=== PATIENT | male | born 1975 | race African-American/Black ===

== ENCOUNTER 2017-02-12 08:21 | Emergency (ER) | payer MEDICAID ==
[~2017-02-12] VITALS: Ht 180.3 cm; Wt 105.0 kg
[2017-02-12] MEDS ORDERED: SODIUM CHLORIDE 0.9% 1,000 ML IV ONE (08:40)
[2017-02-12 09:25] LABS: BASOPHILS % 1.3 % (0.0-2.0); EOSINOPHILS % 2.4 % (0.0-5.0); HEMATOCRIT. 41.4 % (42.0-52.0); HEMOGLOBIN. 13.9 g/dL (14.0-18.0); LYMPHOCYTES % 26.9 % (20.0-50.0); MEAN CORPUSCULAR HGB CONC 33.5 g/dL (31.0-37.0); MEAN CORPUSCULAR VOLUME 83.5 fL (80.0-94.0); MEAN PLATELET VOLUME 7.9 fl (7.4-10.4); MONOCYTES % 6.2 % (2.0-8.0); NEUTROPHILS % 63.2 % (40.0-76.0); PLATELET 296 x1000/uL (130-400); RED BLOOD CELL COUNT 4.96 mill/uL (4.7-6.1); RED CELL DISTRIBUTION WIDTH 12.8 % (11.6-14.6); WHITE BLOOD COUNT 6.3 x1000/uL (4.5-11.0)
[2017-02-12 09:31] LABS: INR 1.1; PROTHROMBIN TIME 11.2 sec
[2017-02-12 09:40] LABS: ALANINE AMINOTRANSFERASE 30 IU/L (13-61); ALBUMIN 4.1 g/dL (3.4-5.0); ANION GAP 15; CALCIUM 8.7 mg/dL (8.5-10.1); CARBON DIOXIDE 24 mEq/L (21-32); CHLORIDE 105 mEq/L (98-107); CREATINE KINASE MB FRACTION 0.8 ng/mL (0.5-3.6); ETHANOL BLOOD < 10 mg/dL; INDEX HEMOLYSI 1 (1-3); INDEX ICTERIC 1 (1-4); INDEX LIPEMIC 1 (1-3); MAGNESIUM 2.2 mg/dL (1.8-2.4); NT PRO B-TYPE NATRIURETIC PEP 7 pg/mL (5-125); TROPONIN I < 0.02 ng/mL (0.00-0.04); UREA NITROGEN BLOOD 12 mg/dL (7-21); eGFR > 60 mL/min (>60)
[2017-02-12 09:43] LABS: *AMPHETAMINES SCREEN URINE NEGATIVE (NEGATIVE); *BARBITURATES SCREEN URINE NEGATIVE (NEGATIVE); *BENZODIAZEPINES SCREEN URINE NEGATIVE (NEGATIVE); *COCAINE SCREEN URINE NEGATIVE (NEGATIVE); CANNABINOID URINE SCREEN NEGATIVE (NEGATIVE); ECSTASY MDMA SCREEN URINE NEGATIVE (NEGATIVE); METHADONE URINE SCREEN NEGATIVE (NEGATIVE); OPIATES URINE SCREEN NEGATIVE (NEGATIVE); PHENCYCLIDINE URINE SCREEN NEGATIVE (NEGATIVE)
[2017-02-12 11:36] VITALS: BP 117/79
== END 2017-02-12 11:40 | disposition home or self-care (01) ==
LOC: ER 08:21
DX: R55 Syncope and collapse (principal); R42 Dizziness and giddiness; F17.210 Nicotine dependence, cigarettes, uncomplicated
CPT/HCPCS: 36415; 70450; 71010; 71275; 80053; 80305; 82553; 83735; 83880; 84484; 85025; 85610; 85730; 93005; 99285; G0482; J7030; Z7610

== ENCOUNTER 2018-10-02 07:59 | Emergency (ER) | payer MEDICAID ==
[~2018-10-02] VITALS: Ht 180.3 cm; Wt 101.9 kg
[2018-10-02] MEDS ORDERED: SODIUM CHLORIDE 0.9% 1,000 ML IV ONE (08:37)
[2018-10-02] MEDS ORDERED: ALBUTEROL (0.083%) 2.5MG/3ML NEB HHN STA (08:37)
[2018-10-02] MEDS ORDERED: NITROGLYCERIN OINT 1GM/INCH UDPKT TD ONE (08:45)
[2018-10-02] MEDS ORDERED: ASPIRIN 81MG TABLET PO ONE (08:45)
[2018-10-02 09:20] LABS: BASOPHILS % 0.7 % (0.0-2.0); EOSINOPHILS % 1.4 % (0.0-5.0); HEMATOCRIT. 41.9 % (42.0-52.0); HEMOGLOBIN. 13.9 g/dL (14.0-18.0); LYMPHOCYTES % 13.7 % (20.0-50.0); MEAN CORPUSCULAR HEMOGLOBIN 28.6 pg (28.0-32.0); MEAN CORPUSCULAR VOLUME 86.4 fL (80.0-94.0); MONOCYTES % 5.7 % (2.0-8.0); NEUTROPHILS % 78.5 % (40.0-76.0); PLATELET 307 x1000/uL (130-400); RED BLOOD CELL COUNT 4.85 mill/uL (4.7-6.1); RED CELL DISTRIBUTION WIDTH 12.5 % (11.6-14.6)
[2018-10-02 09:24] LABS: CHLORIDE 106 mEq/L (98-107)
[2018-10-02 14:03] VITALS: BP 92/58
== END 2018-10-02 14:20 | disposition home or self-care (01) ==
LOC: ER 07:59
DX: J06.9 Acute upper respiratory infection, unspecified (principal); R07.9 Chest pain, unspecified; F17.200 Nicotine dependence, unspecified, uncomplicated
CPT/HCPCS: 36415; 71045; 80053; 83605; 83880; 84484; 85025; 93005; 94640; 99284; J7030; J7611

== ENCOUNTER 2018-10-21 09:32 | Emergency (ER) | payer MEDICAID ==
[~2018-10-21] VITALS: Ht 180.3 cm; Wt 99.0 kg
[2018-10-21] MEDS ORDERED: MAGNESIUM/ALUMINUM HYDROXIDE/SIMETHICONE 30ML UDC PO STA (11:59)
[2018-10-21] MEDS ORDERED: VISCOUS LIDOCAINE 2% 15 ML UDC PO STA (11:59)
[2018-10-21 13:10] LABS: BASOPHILS % 0.5 % (0.0-2.0); EOSINOPHILS % 1.2 % (0.0-5.0); HEMATOCRIT. 40.8 % (42.0-52.0); HEMOGLOBIN. 13.5 g/dL (14.0-18.0); LYMPHOCYTES % 16.9 % (20.0-50.0); MEAN CORPUSCULAR HEMOGLOBIN 28.4 pg (28.0-32.0); MEAN PLATELET VOLUME 7.8 fl (7.4-10.4); MONOCYTES % 4.2 % (2.0-8.0); NEUTROPHILS % 77.2 % (40.0-76.0); PLATELET 335 x1000/uL (130-400); RED BLOOD CELL COUNT 4.75 mill/uL (4.7-6.1); RED CELL DISTRIBUTION WIDTH 12.8 % (11.6-14.6)
[2018-10-21 13:19] LABS: CHLORIDE 104 mEq/L (98-107)
[2018-10-21 15:16] VITALS: BP 122/80
== END 2018-10-21 15:39 | disposition home or self-care (01) ==
LOC: ER 09:32
DX: J20.9 Acute bronchitis, unspecified (principal); R03.0 Elevated blood-pressure reading, without diagnosis of hypertension; Z87.891 Personal history of nicotine dependence
CPT/HCPCS: 36415; 71045; 83880; 84484; 93005; 99284

== ENCOUNTER 2021-11-10 10:27 | Emergency (ER) | payer MEDICAID ==
[~2021-11-10] VITALS: Ht 180.3 cm; Wt 106.0 kg
[2021-11-10] MEDS ORDERED: ACETAMINOPHEN 500MG TABLET PO ONE (10:45)
[2021-11-10 13:12] VITALS: BP 140/87
== END 2021-11-10 13:12 | disposition home or self-care (01) ==
LOC: ER 10:27
DX: U07.1 COVID-19 (principal)
CPT/HCPCS: 71045; 87426; 93005; 99285

== ENCOUNTER 2022-12-07 09:16 | Emergency (ER) | payer MEDICAID ==
[~2022-12-07] VITALS: Ht 180.3 cm; Wt 105.0 kg
[2022-12-07 09:21] VITALS: BP 142/88
[2022-12-07] MEDS ORDERED: BENZ100C86 MT (12:05)
== END 2022-12-07 12:34 | disposition home or self-care (01) ==
LOC: ER 09:16
DX: J06.9 Acute upper respiratory infection, unspecified (principal); F95.2 Tourette's disorder; Z20.822 Contact with and (suspected) exposure to COVID-19; F17.210 Nicotine dependence, cigarettes, uncomplicated; Z71.6 Tobacco abuse counseling
CPT/HCPCS: 71045; 87426; 87804; 99284; C9803